=== PATIENT | male | born 1955 | race Caucasian/White ===

== ENCOUNTER → 2018-09-24 | Outpatient (CLI) | payer BC ==
[2018-09-24 10:52] LABS: ANION GAP 9 (5-13); BLOOD UREA NITROGEN 11 mg/dl (7-20); CALCIUM 9.3 mg/dl (8.4-10.2); CARBON DIOXIDE 27 mmol/L (21-31); CHLORIDE 106 mmol/L (97-110); CREATININE 0.72 mg/dl (0.61-1.24); Estimated GFR > 60 mL/min (>60); GLUCOSE 99 mg/dl (70-220); POTASSIUM 4.7 mmol/L (3.5-5.1); SODIUM 142 mmol/L (135-144)
== END | disposition home or self-care (01) ==
LOC: LAB 10:05
DX: R94.39 Abnormal result of other cardiovascular function study (principal)
CPT/HCPCS: 80048

== ENCOUNTER → 2018-10-08 | Outpatient (CLI) | payer BC ==
[2018-10-08] MEDS: IOHEXOL 100 ML (13:19)
[2018-10-08] MEDS: SOD CHLORIDE 0.9% 100 ML (13:19)
== END | disposition home or self-care (01) ==
LOC: C/S 12:03
DX: R94.39 Abnormal result of other cardiovascular function study (principal)
CPT/HCPCS: 75571; 75574

== ENCOUNTER 2018-11-28 07:11 | Day surgery (SDC) | payer MEDICARE, BC ==
[~2018-11-28 07:11] MED LIST: SOD CHLORIDE 0.45% 1,000 ML IV
[2018-11-28] MEDS: DIPHENHYDRAMINE 50 MG CAP PO (07:54)
[2018-11-28] MEDS: FAMOTIDINE 20 MG TAB PO (07:54)
[2018-11-28] MEDS: DIAZEPAM 5 MG TAB PO (07:54)
[2018-11-28 07:59] LABS: ADD MAN DIFF? NO
[2018-11-28 08:03] LABS: WHITE BLOOD COUNT 8.8 10^3/ul (4.8-10.8)
[2018-11-28 08:03] LABS: BASOPHIL # 0.1 10^3/ul (0.0-0.1); BASOPHILS % 0.8 % (0.0-2.0); EOSINOPHILS # 0.3 10^3/ul (0.0-0.5); EOSINOPHILS % 3.1 % (0.0-7.0); HEMATOCRIT 44.7 % (42.0-52.0); HEMOGLOBIN 14.7 g/dl (14.0-18.0); LYMPHOCYTES # 2.2 10^3/ul (0.8-2.9); LYMPHOCYTES % 24.6 % (15.0-51.0); MEAN CORPUSCULAR HEMOGLOBIN 30.7 pg (29.0-33.0); MEAN CORPUSCULAR HGB CONC 32.9 g/dl (32.0-37.0); MEAN CORPUSCULAR VOLUME 93.3 fl (82.0-101.0); MEAN PLATELET VOLUME 9.4 fl (7.4-10.4); MONOCYTE # 0.6 10^3/ul (0.3-0.9); MONOCYTES % 6.6 % (0.0-11.0); NEUTROPHIL # 5.7 10^3/ul (1.6-7.5); NEUTROPHILS % 64.8 % (39.0-77.0); PLATELET COUNT 301 10^3/UL (140-415); RED BLOOD COUNT 4.79 10^6/ul (4.70-6.10)
[2018-11-28 08:23] LABS: INR 0.82; PROTIME 11.4 Sec (11.9-14.9); PT RATIO 0.9
[2018-11-28 08:24] LABS: PARTIAL THROMBOPLASTIN TIME 32.6 Sec (23.0-35.0)
[2018-11-28 08:32] LABS: CHOLESTEROL 187 mg/dl (100-200)
[2018-11-28 08:32] LABS: CHOL/HDL RATIO 3.5 RATIO; HDL CHOLESTEROL 52 mg/dl (30-78); LDL CHOLESTEROL,CALCULATED 120 mg/dl; TRIGLYCERIDES 73 mg/dl (0-149)
[2018-11-28 08:33] LABS: ANION GAP 7 (5-13); BLOOD UREA NITROGEN 11 mg/dl (7-20); CALCIUM 9.4 mg/dl (8.4-10.2); CARBON DIOXIDE 28 mmol/L (21-31); CHLORIDE 107 mmol/L (97-110); CREATININE 0.74 mg/dl (0.61-1.24); Estimated GFR > 60 mL/min (>60); GLUCOSE 93 mg/dl (70-220); POTASSIUM 4.4 mmol/L (3.5-5.1); SODIUM 142 mmol/L (135-144)
[2018-11-28] MEDS ORDERED: IODIXANOL LOCM 100 ML BTL ×4 (08:51→10:50)
[2018-11-28] MEDS ORDERED: MIDAZOLAM 1 MG/ML 2 ML INJ (08:51)
[2018-11-28] MEDS ORDERED: FENTAnyl 50 MCG/ML VIAL (08:51)
[2018-11-28] MEDS ORDERED: HEPARIN 1000 UNITS/ML 10 ML INJ (08:51)
[2018-11-28] MEDS ORDERED: NITROGLYCERIN (IC) 100 MCG/ML INJ (08:52)
[2018-11-28] MEDS ORDERED: VERAPAMIL 5 MG INJ (08:52)
[2018-11-28] MEDS ORDERED: ADENOSINE 30 ML (10:17)
[2018-11-28] MEDS ORDERED: AL HYDROX/MG HYDROX/SIMETH 30 ML CUP PO (11:00)
[2018-11-28] MEDS ORDERED: ACETAMINOPHEN 325 MG TAB PO (11:00)
[2018-11-28] MEDS ORDERED: morphine 2 MG INJ IV (11:00)
[2018-11-28] MEDS ORDERED: ZOLPIDEM 5 MG TAB PO (11:00)
[2018-11-28] MEDS ORDERED: ONDANSETRON 4 MG INJ IV (11:00)
[2018-11-28] MEDS ORDERED: OXYCODONE/ACETAMINOPHEN (5/325) TAB PO (11:00)
[2018-11-28] MEDS ORDERED: TICAGRELOR 90 MG TABLET (11:01)
[2018-11-28] MEDS ORDERED: ASPIRIN 325 MG TAB (11:01)
[2018-11-28] MEDS: SOD CHLORIDE 0.9% 1,000 ML IV (12:17)
[2018-11-28] MEDS ORDERED: INFLUENZA VIRUS VACCINE 0.5 ML (DISPENSING) IM* (13:30)
[2018-11-28] MEDS ORDERED: ATORVASTATIN 10 MG TAB PO (21:00)
[2018-11-29 06:08] LABS: ADD MAN DIFF? NO
[2018-11-29 06:09] LABS: BASOPHIL # 0.1 10^3/ul (0.0-0.1); BASOPHILS % 0.9 % (0.0-2.0); EOSINOPHILS # 0.2 10^3/ul (0.0-0.5); EOSINOPHILS % 2.7 % (0.0-7.0); HEMATOCRIT 40.7 % (42.0-52.0); HEMOGLOBIN 13.7 g/dl (14.0-18.0); LYMPHOCYTES # 1.8 10^3/ul (0.8-2.9); LYMPHOCYTES % 19.5 % (15.0-51.0); MEAN CORPUSCULAR HEMOGLOBIN 30.8 pg (29.0-33.0); MEAN CORPUSCULAR HGB CONC 33.7 g/dl (32.0-37.0); MEAN CORPUSCULAR VOLUME 91.5 fl (82.0-101.0); MEAN PLATELET VOLUME 9.3 fl (7.4-10.4); MONOCYTE # 0.7 10^3/ul (0.3-0.9); MONOCYTES % 7.9 % (0.0-11.0); NEUTROPHIL # 6.2 10^3/ul (1.6-7.5); NEUTROPHILS % 68.6 % (39.0-77.0); PLATELET COUNT 277 10^3/UL (140-415); RED BLOOD COUNT 4.45 10^6/ul (4.70-6.10)
[2018-11-29] MEDS: LEVOTHYROXINE 100 MCG TAB PO (06:34)
[2018-11-29 06:42] LABS: ANION GAP 4 (5-13); BLOOD UREA NITROGEN 16 mg/dl (7-20); CARBON DIOXIDE 23 mmol/L (21-31); CHLORIDE 112 mmol/L (97-110); CREATINE KINASE 42 IU/L (23-200); CREATININE 0.76 mg/dl (0.61-1.24); Estimated GFR > 60 mL/min (>60); GLUCOSE 96 mg/dl (70-220); POTASSIUM 4.2 mmol/L (3.5-5.1); SODIUM 139 mmol/L (135-144)
[2018-11-29 06:52] LABS: CK INDEX 1.1; CK-MB 0.46 ng/ml (0.0-2.4); TROPONIN-I 0.038 ng/ml (0.000-0.120)
[2018-11-29] MEDS: ASPIRIN (EC) 81 MG TAB PO (08:29)
[2018-11-29] MEDS: METOPROLOL (XL) 25 MG TAB PO (08:30)
[2018-11-29] MEDS: TICAGRELOR 90 MG TABLET PO (08:32)
[2018-11-29] MEDS: INFLUENZA VIRUS VACCINE 0.5 ML (DISPENSING) IM* (11:28)
[2018-11-29] MEDS ORDERED: ATORVASTATIN 10 MG TAB PO (21:00)
== END 2018-11-29 14:45 | disposition home or self-care (01) ==
LOC: SDS 07:11 → REC 11:33 → SDS 07:11 → REC 11:32 → TEL 11:33 → SDS 11-29 14:45
DX: I25.10 Atherosclerotic heart disease of native coronary artery without angina pectoris (principal); I10 Essential (primary) hypertension; E78.5 Hyperlipidemia, unspecified; R94.39 Abnormal result of other cardiovascular function study; E03.9 Hypothyroidism, unspecified
CPT/HCPCS: 71045; 80048; 80061; 82550; 82553; 84484; 85025; 85610; 85730; 90686; 93005; 93458; 93571